=== PATIENT | female | born 1985 | race Caucasian/White ===

== ENCOUNTER 2019-12-17 09:07 | Emergency (ER) | payer MEDICAID ==
--- NOTE | 2019-12-17 10:42 | ER Document Report ---
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 Patient states she has a small child at home which prompted her visit today. Patient states she did have lesions to the feet that have almost completely healed due to applying apple cider vinegar. Patient has a lesion to her finger that has been slower to heal. Associated Symptoms: denies: Nonproductive cough, Fever Exacerbated by: Denies Relieved by: Denies Similar symptoms previously: No Recently seen / treated by doctor: No - ROS ROS below otherwise negative: Yes Systems Reviewed and Negative: Yes All other systems reviewed and negative - CONSTITUTIONAL Constitutional: DENIES: Fever, Chills - GASTROINTESTINAL Gastrointestinal: DENIES: Nausea - REPRODUCTIVE Reproductive: DENIES: : - MUSCULOSKELETAL Musculoskeletal: REPORTS: Extremity pain - DERM Skin Color: Normal Skin Problems: Rash Past Medical History - General Information source: Patient - Social History Smoking Status: Current Every Day Smoker Chew tobacco use (# tins/day): No Frequency of alcohol use: Social Drug Abuse: None Occupation: None Lives with: Family Family History: Reviewed & Not Pertinent Psychiatric Medical History: Reports: Hx Depression Past Surgical History: Reports: Hx Section - Immunizations Hx Diphtheria, Pertussis, Tetanus Vaccination: Yes Vertical Provider Document - CONSTITUTIONAL Agree With Documented VS: Yes Exam Limitations: No Limitations General Appearance: WD/WN, No Apparent Distress - HEENT HEENT: Atraumatic, Normocephalic - NECK Neck: Normal Inspection, Supple - RESPIRATORY Respiratory: No Respiratory Distress - CARDIOVASCULAR Pulses: Normal: Dorsalis pedis - MUSCULOSKELETAL/EXTREMETIES Musculoskeletal/Extremeties: MAEW - NEURO Level of Consciousness: Awake, Alert, Appropriate Motor/Sensory: No Motor Deficit - DERM Integumentary: Warm, Dry. negative: Abscess Notes: Healing wound to the palmar surface of the left third finger overlying the proximal phalanx, no active vesicular lesion, mildly erythematous ulceration, blackened center to wound bed, no fluctuance, Course - Re-evaluation Re-evalutation: 12/17/19 10:47 Patient with skin lesion worrisome for resolving herpetic kate from patient's description of lesion. No concern for cellulitis or tenosynovitis. - Vital Signs Vital signs: Temp Pulse Resp BP Pulse Ox 98.5 F 83 14 119/67 98 12/17/19 09:11 12/17/19 09:11 12/17/19 09:11 12/17/19 09:11 12/17/19 09:11 Discharge - Discharge Clinical Impression: Skin lesion of left arm Condition: Stable Disposition: HOME, SELF-CARE Additional Instructions: Return immediately for any new or worsening symptoms Followup with your primary care provider, call tomorrow to make a followup appointment Prescriptions: Mupirocin [Bactroban 2% Ointment 22 gm] 1 applic TP TID #22 gm Valacyclovir HCl [Valtrex] 1,000 mg PO BID #28 tablet Referrals: [facility] [Provider Group] - Follow up as needed
[2019-12-17 10:45] VITALS: BP 115/71
== END 2019-12-17 10:47 | disposition home or self-care (01) ==
LOC: ER 09:07
DX: L98.9 Disorder of the skin and subcutaneous tissue, unspecified (principal); F17.200 Nicotine dependence, unspecified, uncomplicated
CPT/HCPCS: 99283